=== PATIENT | female | born 1960 | race African-American/Black ===

== ENCOUNTER 2018-03-12 18:02 | Emergency (ER) | payer MEDICAID, OTHER ==
[~2018-03-12] VITALS: Ht 172.7 cm; Wt 80.0 kg
[~2018-03-12 18:02] MED LIST: AMLO10TA80 PO; ASPI-1158 PO; FAMO20TA8 PO; FOLI-43; GEMF600T4 PO; LISI-604 PO; METO25TA6 PO; PANT40TA4; SUCR1TAB
[2018-03-12 18:07] VITALS: BP 151/97
== END 2018-03-12 21:00 | disposition left against medical advice (07) ==
LOC: ER 18:12
DX: Z53.21 Procedure and treatment not carried out due to patient leaving prior to being seen by health care provider (principal); Z88.0 Allergy status to penicillin